=== PATIENT | female | born 1985 | race Caucasian/White ===

== ENCOUNTER 2020-10-10 11:12 | Outpatient (REF) | payer BC, SELFPAY ==
[2020-10-12 19:26] LABS: TS Negative Control Passed; TS Panel A 0; TS Panel B 0; TS Positive Control Passed; TSpotTB Negative (SeeBelow)
== END 2020-10-10 11:13 | disposition home or self-care (01) ==
LOC: HO.HMGCLDS 11:12
PROVIDERS: Visit Provider Internal Medicine
DX: R76.11 Nonspecific reaction to tuberculin skin test without active tuberculosis (principal)
CPT/HCPCS: 36415; 86481

== ENCOUNTER 2021-09-19 14:16 | Outpatient (REF) | payer BC, SELFPAY ==
--- NOTE | ~2021-09-19 | XR_ITS ---
EXAMINATION: XR HIP, RIGHT CLINICAL INFORMATION: Pain in right hip COMPARISON: None TECHNIQUE: Two views of the right hip. FINDINGS: Bones and soft tissues are normal. No fracture. Alignment is anatomic. Hip joint space is maintained. Incidental finding of an IUD is noted. XR/XR hip RT w PEL1V IMPRESSION: Unremarkable right hip exam.
== END 2021-09-19 14:17 | disposition home or self-care (01) ==
LOC: HO.HMGCX 14:16
PROVIDERS: PCP Internal Medicine; Visit Provider Internal Medicine
DX: M25.551 Pain in right hip (principal)
CPT/HCPCS: 73502

== ENCOUNTER 2021-09-26 11:36 | Outpatient (REF) | payer BC, SELFPAY ==
[2021-09-28 21:16] LABS: TS Negative Control Passed; TS Panel A 0; TS Panel B 0; TS Positive Control Passed; TSpotTB Negative (Negative)
== END 2021-09-26 11:37 | disposition home or self-care (01) ==
LOC: HO.HMGCLDS 11:36
PROVIDERS: PCP Internal Medicine; Visit Provider Internal Medicine
DX: Z11.1 Encounter for screening for respiratory tuberculosis (principal)
CPT/HCPCS: 36415; 86481

== ENCOUNTER 2022-09-06 08:30 | Outpatient (REF) | payer BC, SELFPAY ==
[2022-09-08 14:43] LABS: TS Negative Control Passed; TS Panel A 0; TS Panel B 0; TS Positive Control Passed; TSpotTB Negative (Negative)
== END 2022-09-06 08:31 | disposition home or self-care (01) ==
LOC: HO.HMGCLDS 08:30
PROVIDERS: PCP Internal Medicine; Visit Provider Internal Medicine
DX: Z11.1 Encounter for screening for respiratory tuberculosis (principal)
CPT/HCPCS: 36415; 86481

== ENCOUNTER 2022-10-19 06:16 | Outpatient (REF) | payer BC, SELFPAY ==
[2022-10-19 11:32] LABS: MANUAL DIFF FLAG NO
[2022-10-19 12:04] LABS: Basophils Absolute Auto 0.1 X10*3/uL (0.0-0.2); Basophils Percent Auto 0.9 % (0-2); Eosinophils Absolute Auto 0.2 X10*3/uL (0.0-0.4); Eosinophils Percent Auto 3.1 % (0-4); Hematocrit 39.1 % (37.0-47.0); Imm Gran Abs Auto 0.01 X10*3/uL (0.00-0.03); Imm Gran Pct Auto 0.2 % (0.0-0.4); Lymphocytes Absolute Auto 1.9 X10*3/uL (1.2-4.9); Lymphocytes Percent Auto 35.5 % (20-40); Mean Corpuscular HGB Conc 33.2 g/dl (31.0-35.0); Mean Corpuscular Hemoglobin 31.2 pg (27.0-33.0); Mean Corpuscular Volume 93.8 fL (80.0-98.0); Mean Platelet Volume 9.1 fL (9.4-12.3); Monocytes Absolute Auto 0.4 X10*3/uL (0.1-1.2); Monocytes Percent Auto 8.1 % (2-11); Neutrophils Absolute Auto 2.8 x10*3/uL (2.0-8.3); Neutrophils Percent Auto 52.2 % (45-73); Platelet Count 309 X10*3/uL (160-400); Red Blood Count 4.17 X10*6/uL (4.20-5.50); Red Cell Distribution Width 12.5 % (11.0-16.0); White Blood Count 5.4 X10*3/uL (4.8-10.8)
[2022-10-19 12:31] LABS: Alanine Aminotransferase 23 U/L (0-31); Anion Gap 11 (12-20); Aspartate Amino Transferase 25 U/L (5-31); Blood Urea Nitrogen 16 mg/dL (9-16); Calcium 9.1 mg/dL (8.4-10.2); Carbon Dioxide 26 mmol/L (22-29); Chloride 110 mmol/L (96-108); Cholesterol 178 mg/dL; Estimated Glomerular Filt Rate > 60; Glucose Fasting 93 mg/dL (60-99); HDL Cholesterol 61 mg/dL; LDL Cholesterol Calculated 98 mg/dl; Potassium 4.2 mmol/L (3.3-5.1); Sodium 143 mmol/L (135-145); Triglycerides 97 mg/dL
[2022-10-19 12:37] LABS: Vitamin D 25-OH Total 36.8 ng/mL (>30)
== END 2022-10-19 06:17 | disposition home or self-care (01) ==
LOC: HO.HMGCLDS 06:16
PROVIDERS: PCP Internal Medicine; Visit Provider Internal Medicine
DX: Z00.01 Encounter for general adult medical examination with abnormal findings (principal); R42 Dizziness and giddiness; S16.1XXA Strain of muscle, fascia and tendon at neck level, initial encounter; X58.XXXA Exposure to other specified factors, initial encounter; Y93.9 Activity, unspecified; Y92.9 Unspecified place or not applicable; Y99.9 Unspecified external cause status
CPT/HCPCS: 36415; 80048; 80061; 82306; 84450; 84460; 85025

== ENCOUNTER 2022-10-23 09:58 | Outpatient (AMB) | payer BC, SELFPAY ==
--- NOTE | 2022-10-23 10:00 | MHC.PC.OV ---
Vital Signs 10/23/22 10:05 Height 5 ft 2 in Weight 145 lb 2 oz BMI 26.5 BP 120/80 Blood Pressure Location Lt brachial Position Sitting Pulse 80 Pulse Source Pulse Oximeter Pulse Oximetry (%) 100 Oxygen Delivery Method Room Air Intake Visit Reasons: PE Intake Note: Pt is here today for her PE Is last menstrual period known: Yes Last menstrual period: 10/23/22 Allergies No Known Allergies Allergy (Verified 10/23/22 10:26) Medication List - Last Reconciled 10/23/22 by Oumou Elias MD biotin 10 mg PO DAILY levonorgestrel (Mirena) intrauterine tizanidine 4 mg PO BID PRN Tobacco use date assessed: 10/23/22 HPI PE HPI Details 37-year-old lady here today for physical exam. Currently goes to her [facility] for her routine Pap and pelvic exam, last 1 done in 2019 with negative findings. Has recurrent heartburn symptoms, aggravated by intake of acidic and greasy foods, takes [id number] antacids which affords only temporary relief. [facility] Medical History Acute right hip pain Heartburn Social History Housing: House Patient Tobacco Use Status: Former Tobacco user e-Cigarette/Vaping Use: Never Used service: No Current occupational status: employed Cognitive needs: No Hearing needs: No Vision needs: Yes Female Reproductive History Menstrual Date of last menstrual period: 10/23/22 control method: progestin IUCD (Mirena inserted 3 years ago at [place]) Other: goes to [facility] Questionnaire PHQ-9 Over the last 2 weeks, how often have you been bothered by any of the following problems? 1. Little interest or pleasure in doing things: not at all 2. Feeling down, depressed, or hopeless: not at all 3. Trouble falling or staying asleep, or sleeping too much: several days 4. Feeling tired or having little energy: several days 5. Poor appetite or overeating: not at all 6. Feeling bad about yourself - or that you are a failure or have let yourself or your family down: not at all 7. Trouble concentrating on things, such as reading the newspaper or watching television: several days 8. Moving or speaking so slowly that other people could have noticed. Or the opposite - being so fidgety or restless that you have been moving around a lot more than usual: not at all 9. Thoughts that you would be better off or of hurting yourself in some way: not at all Total score: 3 Depression Screening Interpretation: Negative 84158 - PHQ-9 Billing: Yes Source: Developed by Drs. Rohan Burgos, Tri Guo, Panfilo Harley and colleagues, with an educational rupert from [employer]. Thrive Questionnaire Declines Thrive assessment: No Date Thrive assessed: 10/23/22 I am a: Patient What is your living situation today?: I have a steady place to live Within the past 12 months, did the food you bought not last and you didn't have the money to get more?: Never true Within the past 12 months, did you worry whether your food would run out before you got money to buy more?: Never true Do you have trouble paying for medicines?: No Do you have trouble getting transportation to medical appointments?: No Do you have trouble paying your heating and electricity bill?: No Do you have trouble taking care of your child, family member or friend?: No Do you have trouble with day-to-day activities such as bathing, preparing meals, shopping, managing finances, etc.?: No Are you currently unemployed and looking for a job?: No Are you interested in more education?: No AUDIT C Alcohol Use Questionnaire (AUDIT-C) 1. How often do you have a drink containing alcohol?: 2-3 times a week 2. How many drinks containing alcohol do you have on a typical day when you are drinking?: 1 or 2 3. How often do you have six or more drinks on one occasion?: Never Total Score: 3 CORTNEY-7 AMB Questionnaire CORTNEY-7 Date CORTNEY - 7 assessed: 10/23/22 Feeling nervous, anxious, or on edge: 2 = More than half the days Not being able to stop or control worryin = Not at all Worrying too much about different things: 1 = Several days Trouble relaxin = Not at all Being so restless that it is hard to sit still: 0 = Not at all Becoming easily annoyed or irritable: 0 = Not at all Feeling afraid as if something awful might happen: 0 = Not at all Total CORTNEY-7 score (0-4 normal; 5-9 mild; 10-14 moderate; 15-21 severe): 3 Source: Developed by Drs. Rohan Burgos, Tri Guo, Panfilo Harley and colleagues, with an educational rupert from [employer]. CORTNEY-7 Assessment Billing CORTNEY-7 Assessment Tool: CORTNEY-7 Assessment 50472 Review of Systems Const Reports no additional complaints Eyes Denies change in vision and Denies dry eyes ENT Denies dry mouth, Denies hoarseness, Denies mouth pain, Denies nasal congestion, Denies neck mass, Denies disequilibrium and Denies post nasal drip Card Reports no additional complaints Resp Reports no additional complaints GI Reports as per HPI Details: goes to [facility] Reports no additional complaints Musc Reports as per HPI Skin/Breast Denies rash Neuro Denies disequilibrium Psych Reports no additional complaints Endo Reports no additional complaints Fernando/Lymph Reports no additional complaints Aller/Immun Reports no additional complaints Physical exam (Primary Care) Vital Signs: Last Vital Signs Pulse 80 10/23/22 10:05 BP 120/80 10/23/22 10:05 Pulse Ox 100 10/23/22 10:05 Oxygen Delivery Method Room Air 10/23/22 10:05 BMI result Body Mass Index 26.5 Tobacco/Smoking Status: Tobacco use Status Tobacco use date assessed 10/23/22 10/23/22 10:03 Patient Tobacco Use Status Former Tobacco user 10/23/22 10:00 e-Cigarette/Vaping Use Never Used 10/23/22 10:00 PHQ-9: PHQ-9 Score PHQ-9: Total score 3 10/23/22 10:54 Depression Screening Interpretation: Negative Thrive Assessment: Date of Thrive Assessment Date Thrive assessed 10/23/22 10/23/22 10:22 Const Other: Alert oriented x3, no acute distress noted, ambulatory normal gait, poor posture noted HENMT Ears: hearing grossly normal bilaterally, TM's normal bilaterally and EAC's normal General nose exam: Normal external nose present and No nasal discharge present Face and sinus: Yes face symmetric Mouth: Normal oral and palatal mucosa present and moist mucous membranes Eyes General: appearance normal, both eyes and all related structures Eyelids: Yes eyelids normal Pupils: Equal, round and reactive pupils present EOM: EOMs intact bilaterally Neck Neck: Yes full ROM, Yes no lymphadenopathy and Yes supple Thyroid: Thyroid normal Chest Breast/axilla palpation: normal palpation of the breasts Resp Auscultation: clear to auscultation bilaterally Cardio Rate: regular rate Rhythm: regular rhythm Heart sounds: S1 normal heart sound present and S2 normal heart sound present GI Palpation (GI): Soft to palpation, nontender, no guarding and no masses Auscultation: normal bowel sounds General: Yes deferred Back/Spine/Pelvis Cervical Spine: cervical ROM normal and cervical muscular tenderness (bilateral trapezius tenderness ) Skin General skin exam: no rashes or lesions noted Neuro Cranial nerves: Yes Equal, round and reactive pupils present Extrem General: Yes full ROM, Yes no joint enlargement, Yes no clubbing, cyanosis or edema, Yes no calf tenderness and Yes normal gait Psych Appearance: grossly normal and well kempt Mental Status: mental status grossly normal Affect: normal affect Results Reviewed Results Reviewed: ENTERED: 10/19/[address]: ORDERED: CBC Auto Diff Test Result Flag Reference Site WBC 5.4 4.8-10.8 X10*3/uL RBC 4.17 L 4.20-5.50 X10*6/uL HGB 13.0 12.0-16.0 g/dl HCT 39.1 37.0-47.0 % MCV 93.8 80.0-98.0 fL MCH 31.2 27.0-33.0 pg MCHC 33.2 31.0-35.0 g/dl RDW 12.5 11.0-16.0 % PLT 309 160-400 X10*3/uL MPV 9.1 L 9.4-12.3 fL Neut Pct Auto 52.2 45-73 % ImGran Pct Auto 0.2 0.0-0.4 % Lymp Pct Auto 35.5 20-40 % Alexander Pct Auto 8.1 2-11 % Eos Pct Auto 3.1 0-4 % Baso Pct Auto 0.9 0-2 % NRBC Pct Auto 0.0 0.0-0.2 /100WBC ANC Neut Abs # 2.8 2.0-8.3 x10*3/uL ImGran Abs Auto 0.01 0.00-0.03 X10*3/uL Lymph Abs Auto 1.9 1.2-4.9 X10*3/uL Alexander Abs Auto 0.4 0.1-1.2 X10*3/uL Eos Abs Auto 0.2 0.0-0.4 X10*3/uL Baso Abs Auto 0.1 0.0-0.2 X10*3/uL NRBC Abs Auto 0.000 0.0-0.012 X10*3/uL ENTERED: 10/19/[address] [facility] [address]: ORDERED: Met Prof Fast, AST, ALT, Lipid Panel, Vitamin D 25-OH Test Result Flag Reference Site Sodium 143 135-145 mmol/L Potassium 4.2 3.3-5.1 mmol/L CL 110 H 96-108 mmol/L CO2 26 22-29 mmol/L Gap 11 L 12-20 BUN 16 9-16 mg/dL Creat 0.71 0.5-1.4 mg/dL EGFR > 60 NOTE: For -[place] individuals, multiply the result by 1.210. Chronic Kidney Disease: Estimated GFR < 60 mL/min/1.73m2 Severe Kidney Disease: Estimated GFR < 15 mL/min/1.73m2 FBS 93 60-99 mg/dL CA 9.1 8.4-10.2 mg/dL AST (GOT) 25 5-31 U/L ALT (GPT) 23 0-31 U/L Triglyceride 97 mg/dL Desirable Triglyceride: less than 150 mg/dL Borderline High Triglyceride 150-199 mg/dL High Triglyceride: 200-499 mg/dL Very High Triglyceride: greater than or equal to 5OO mg/dL Chol 178 mg/dL Desirable Cholesterol: less than 200 mg/dL Borderline High Cholesterol: 200-239 mg/dL High Cholesterol: greater than 239 mg/dL LDL Calculated 98 mg/dl Desirable LDL: less than 100 mg/dL Near Optimal/Above Optimal LDL: 110-129 mg/dL Borderline High LDL: 130-159 mg/dL High LDL: 160-189 mg/dL Very High LDL: greater than or equal to 190 mg/dL HDL 61 mg/dL Desirable HDL: greater than 40 mg/dL Note: This HDL assay may give artificially low results in patients with liver disease. Vit D 25-OH Tot 36.8 >30 ng/mL Health Based Reference Values* < 20 ng/mL Deficient 20-30 ng/mL Insufficient > 30 ng/mL Sufficient Assessment and Plan Assessment & Plan (1) Annual visit for general adult medical examination with abnormal findings: Code(s): Z00.01 - Encounter for general adult medical examination with abnormal findings Plan: Reviewed recent fasting lab results with patient.. Recommended dental visit every 6 months and regular eye exams, at least every 2 years. Take adequate calcium in diet and vitamin-D 3 at 2000 IU per cap once a day, in addition to weight-bearing exercises to help maintain good muscle tone and weight control. Instructed to do self-breast exam, and recommended to get yearly mammogram, starting at age 40. Up-to-date with her cervical cancer screening, goes to [place]. Reminded to get her COVID booster and yearly flu shot, up-to-date with her Tdap (2) Heartburn: Code(s): R12 - Heartburn Plan: Ordered an upper GI series, prescription sent for omeprazole 2 mg per capsule to take once a day in a.m. at least 30 minutes before eating., stressed importance of avoiding food triggers for heartburn which includes anything acidic or greasy. Orders: Orders [place] upper GI series 10/23/22 R12 - Heartburn Medications: New omeprazole take at least 30 mins ac 40 mg PO QAM 30 caps 1RF Coding Level of Care Code Est Pt Prev Care 18-39y(21636) Diagnoses Annual visit for general adult medical examination with abnormal findings Z00. Heartburn R12 Additional Codes CORTNEY-7 Assessment Billing - CORTNEY-7 Assessment Tool: CORTNEY-7 Assessment 99323 ([id number])
[2022-10-23 10:05] VITALS: BP 120/80; PULSE 80; O2SAT 100; BMI 26.5
== END 2022-10-23 10:59 | disposition home or self-care (01) ==
LOC: HO.HMGC 09:58
PROVIDERS: PCP Internal Medicine; Visit Provider Internal Medicine
DX: Z00.01 Encounter for general adult medical examination with abnormal findings (principal); R12 Heartburn
CPT/HCPCS: 99395

== ENCOUNTER 2023-12-03 08:17 | Outpatient (REF) | payer BC, SELFPAY ==
[2023-12-06 08:54] LABS: TS Negative Control Passed; TS Panel A 1; TS Panel B 1; TS Positive Control Passed; TSpotTB Negative (Negative)
== END 2023-12-03 08:18 | disposition home or self-care (01) ==
LOC: HO.HMGCLDS 08:17
PROVIDERS: PCP Internal Medicine; Visit Provider Internal Medicine
DX: Z11.1 Encounter for screening for respiratory tuberculosis (principal)
CPT/HCPCS: 36415; 86481

== ENCOUNTER 2023-12-16 09:42 | Outpatient (AMB) | payer BC, SELFPAY ==
[2023-12-16 10:26] VITALS: BP 110/80; PULSE 78; O2SAT 98; BMI 27.2
--- NOTE | 2023-12-16 10:26 | A.OFFPC_ITS ---
Vital Signs 12/16/23 10:26 Height 5 ft 2 in Weight 149 lb BMI 27.2 BP 110/80 Blood Pressure Location Lt brachial Position Sitting Pulse 78 Pulse Source Pulse Oximeter Pulse Oximetry (%) 98 Oxygen Delivery Method Room Air Intake Visit Reasons: Annual PE rescheduled from 10/29/23 Intake Note: Pt is here today for her PE: last papsmear Allergies No Known Allergies Allergy (Verified 01/17/24 08:11) Medication List - Last Reconciled 04/08/24 by Oumou Elias MD escitalopram oxalate 10 mg PO DAILY levonorgestrel (Mirena) intrauterine multivitamin 1 tab PO DAILY omeprazole 40 mg PO QAM Tobacco use date assessed: 12/16/23 Dental Screening Dental Screen Date: 12/16/23 Did you have a dental visit in the last 12 months?: Yes Did you have a dental problem in the last 6 months where you did not have access to dental care?: No Was dental information given to patient?: Patient has dentist HPI Annual PE rescheduled from 10/29/23 HPI Details 38-year-old lady here today for physica l exam. She goes to her own OBGYN for her routine Pap and pelvic exam, had Mirena inserted, last Pap smear was done in 2019. She has been having frequent anxiety attacks, which seems to be progressively getting worse. Interferes with sleep. [facility] Medical History COVID-19 vaccine dose declined Generalized anxiety disorder Heartburn Acute right hip pain Social History Housing: House Patient Tobacco Use Status: Former Tobacco user e-Cigarette/Vaping Use: Never Used service: No Current occupational status: employed Cognitive needs: No Hearing needs: No Vision needs: Yes Questionnaire PHQ-9 Over the last 2 weeks, how often have you been bothered by any of the following problems? 1. Little interest or pleasure in doing things: not at all 2. Feeling down, depressed, or hopeless: not at all 3. Trouble falling or staying asleep, or sleeping too much: not at all 4. Feeling tired or having little energy: several days 5. Poor appetite or overeating: not at all 6. Feeling bad about yourself - or that you are a failure or have let yourself or your family down: not at all 7. Trouble concentrating on things, such as reading the newspaper or watching television: not at all 8. Moving or speaking so slowly that other people could have noticed. Or the opposite - being so fidgety or restless that you have been moving around a lot more than usual: not at all 9. Thoughts that you would be better off or of hurting yourself in some way: not at all Total score: 1 Depression Screening Interpretation: Negative Depression Screening Done: Yes 61593 - PHQ-9 Billing: Yes Source: Developed by Drs. Rohan Burgos, Tri Guo, Panfilo Harley and colleagues, with an educational rupert from [employer]. Thrive Questionnaire Date Thrive assessed: 12/16/23 I am a: Patient What is your living situation today?: I have a steady place to live Within the past 12 months, did the food you bought not last and you didn't have the money to get more?: Never true Within the past 12 months, did you worry whether your food would run out before you got money to buy more?: Never true Do you have trouble paying for medicines?: No Do you have trouble getting transportation to medical appointments?: No Do you have trouble paying your heating and electricity bill?: No Do you have trouble taking care of your child, family member or friend?: No Do you have trouble with day-to-day activities such as bathing, preparing meals, shopping, managing finances, etc.?: No Are you currently unemployed and looking for a job?: No Are you interested in more education?: No THRIVE Score: 0 AUDIT C Alcohol Use Questionnaire (AUDIT-C) 1. How often do you have a drink containing alcohol?: Monthly or less 2. How many drinks containing alcohol do you have on a typical day when you are drinking?: 1 or 2 3. How often do you have six or more drinks on one occasion?: Never Total Score: 1 CORTNEY-7 AMB Questionnaire CORTNEY-7 Date CORTNEY - 7 assessed: 12/16/23 Feeling nervous, anxious, or on edge: 1 = Several days Not being able to stop or control worryin = Several days Worrying too much about different things: 1 = Several days Trouble relaxin = Several days Being so restless that it is hard to sit still: 0 = Not at all Becoming easily annoyed or irritable: 0 = Not at all Feeling afraid as if something awful might happen: 1 = Several days Total CORTNEY-7 score (0-4 normal; 5-9 mild; 10-14 moderate; 15-21 severe): 5 Source: Developed by Drs. Rohan Burgos, Tri Guo, Panfilo Harley and colleagues, with an educational rupert from [employer]. CORTNEY-7 Assessment Billing CORTNEY-7 Assessment Tool: CORTNEY-7 Assessment 95489 Review of Systems Const Reports no additional complaints Eyes Denies change in vision ENT Reports no additional complaints Card Reports no additional complaints Resp Reports no additional complaints GI Reports no additional complaints Reports no additional complaints Musc Reports no additional complaints Skin/Breast Denies breast pain, Denies breast mass and Denies rash Neuro Reports no additional complaints Psych Reports no additional complaints Endo Reports no additional complaints Fernando/Lymph Reports no additional complaints Aller/Immun Reports no additional complaints Physical exam (Primary Care) Vital Signs: Last Vital Signs Pulse 78 12/16/23 10:26 BP 110/80 12/16/23 10:26 Pulse Ox 98 12/16/23 10:26 Oxygen Delivery Method Room Air 12/16/23 10:26 BMI result Body Mass Index 27.2 Tobacco/Smoking Status: Tobacco use Status Tobacco use date assessed 12/16/23 12/16/23 10:31 Patient Tobacco Use Status Former Tobacco user 12/16/23 10:31 e-Cigarette/Vaping Use Never Used 12/16/23 10:31 PHQ-9: PHQ-9 Score PHQ-9: Total score 1 12/16/23 11:05 Depression Screening Interpretation: Negative Thrive Assessment: Date of Thrive Assessment Date Thrive assessed 12/16/23 12/16/23 10:31 Advance Care Planning discussion: Completed/Scanned Date of discussion: 12/16/23 Who was present: Patient Forms completed: Health Care Proxy Time spent: 16-45 minutes Actual minutes spent: 16 Const Other: Alert oriented x3, no acute distress noted, ambulatory normal gait, poor posture noted HENMT Ears: hearing grossly normal bilaterally, TM's normal bilaterally and EAC's normal General nose exam: Normal external nose present and No nasal discharge present Face and sinus: Yes face symmetric Mouth: Normal oral and palatal mucosa present and moist mucous membranes Eyes General: appearance normal, both eyes and all related structures Eyelids: Yes eyelids normal Pupils: Equal, round and reactive pupils present EOM: EOMs intact bilaterally Neck Neck: Yes full ROM, Yes no lymphadenopathy and Yes supple Thyroid: Thyroid normal Chest Breast/axilla palpation: normal palpation of the breasts Resp Auscultation: clear to auscultation bilaterally Cardio Rate: regular rate Rhythm: regular rhythm Heart sounds: S1 normal heart sound present and S2 normal heart sound present GI Palpation (GI): Soft to palpation, nontender, no guarding and no masses Auscultation: normal bowel sounds Other: Goes to OBGYN at [place], last Pap was in 2019 General: Yes deferred Back/Spine/Pelvis Cervical Spine: cervical ROM normal Skin General skin exam: no rashes or lesions noted Neuro Cranial nerves: Yes Equal, round and reactive pupils present Extrem General: Yes full ROM, Yes no joint enlargement, Yes no clubbing, cyanosis or edema, Yes no calf tenderness and Yes normal gait Psych Appearance: grossly normal and well kempt Mental Status: mental status grossly normal Affect: normal affect Coding Level of Care Code Est Pt Prev Care 18-39y(14245) Diagnoses Annual visit for general adult medical examination with abnormal findings Z00.01 Generalized anxiety disorder F41.1 Heartburn R12 COVID-19 vaccine dose declined Z28.21 Advanced directives, counseling/discussion Z71.89 Additional Codes Vital Signs *Quality* - Advance Care Planning discussion: Completed/Scanned ([id number]) Vital Signs *Quality* - Time spent: 16-45 minutes ([id number]) CORTNEY-7 Assessment Billing - CORTNEY-7 Assessment Tool: CORTNEY-7 Assessment [id number] ([id number])
== END 2023-12-16 11:05 | disposition home or self-care (01) ==
PROVIDERS: PCP Internal Medicine; Visit Provider Internal Medicine
DX: Z00.01 Encounter for general adult medical examination with abnormal findings (principal); F41.1 Generalized anxiety disorder; R12 Heartburn; Z28.21 Immunization not carried out because of patient refusal; Z71.89 Other specified counseling; Z00.00 Encounter for general adult medical examination without abnormal findings
CPT/HCPCS: 99499

== ENCOUNTER 2024-01-17 08:02 | Outpatient (AMB) | payer BC, SELFPAY ==
--- NOTE | 2024-01-17 08:04 | A.OFFPC_ITS ---
Intake Visit Reasons: 4 wks f/u Anxiety/Med Change [facility]riod Allergies No Known Allergies Allergy (Verified 01/17/24 08:11) Medication List - Last Reconciled 01/17/24 by Oumou Elias MD escitalopram oxalate 10 mg PO DAILY levonorgestrel (Mirena) intrauterine multivitamin 1 tab PO DAILY omeprazole 40 mg PO QAM Tobacco use date assessed: 12/16/23 Dental Screening Dental Screen Date: 12/16/23 HPI 4 wks f/u Anxiety/Med Change Andriod HPI Details 38-year-old lady with generalized anxiet y disorder started on escitalopram 10 mg once a day 4 weeks ago. Here today for follow-up. Patient states that she has been feeling better, with anxiety controlled on current dose of escitalopram. Denies any side effects from medication. Would like to continue [facility] Medical History COVID-19 vaccine dose declined Generalized anxiety disorder Heartburn Acute right hip pain Social History Housing: House Patient Tobacco Use Status: Former Tobacco user e-Cigarette/Vaping Use: Never Used service: No Current occupational status: employed Cognitive needs: No Hearing needs: No Vision needs: Yes Questionnaire Thrive Questionnaire Date Thrive assessed: 12/16/23 CORTNEY-7 AMB Questionnaire CORTNEY-7 Date CORTNEY - 7 assessed: 01/17/24 Feeling nervous, anxious, or on edge: 0 = Not at all Not being able to stop or control worryin = Not at all Worrying too much about different things: 0 = Not at all Trouble relaxin = Not at all Being so restless that it is hard to sit still: 0 = Not at all Becoming easily annoyed or irritable: 0 = Not at all Feeling afraid as if something awful might happen: 0 = Not at all Total CORTNEY-7 score (0-4 normal; 5-9 mild; 10-14 moderate; 15-21 severe): 0 Source: Developed by Drs. Rohan Burgos, Tri Guo, Panfilo Harley and colleagues, with an educational rupert from [employer]. CORTNEY-7 Assessment Billing CORTNEY-7 Assessment Tool: CORTNEY-7 Assessment 31037 Review of Systems Const Reports no additional complaints ENT Reports no additional complaints Card Reports no additional complaints Resp Reports no additional complaints GI Reports no additional complaints Musc Reports no additional complaints Neuro Reports no additional complaints Psych Reports no additional complaints Endo Reports no additional complaints Physical exam (Primary Care) Tobacco/Smoking Status: Tobacco use Status Tobacco use date assessed 12/16/23 01/17/24 08:04 Patient Tobacco Use Status Former Tobacco user 01/17/24 08:04 e-Cigarette/Vaping Use Never Used 01/17/24 08:04 Thrive Assessment: Date of Thrive Assessment Date Thrive assessed 12/16/23 01/17/24 08:04 Telehealth Telehealth Telehealth Platform: [employer] Location of provider rendering services: practice address Location of patient: address on file Patient Identification confirmed using: Name, : Yes Telehealth method: video Patient verbally consented to treatment: Yes Patient verbally consented to billing insurance company: Yes Patient informed of any privacy concerns related to visit: Yes Minutes spent on Phone/Video with Pt.: 15 Assessment and Plan Assessment & Plan (1) Generalized anxiety disorder: Code(s): F41.1 - Generalized anxiety disorder Plan: Has been feeling better on escitalopram 10 mg taken once at night. Denies any adverse effects from medication, would like to continue taking it. Refill sent for 90 tablets with 1 refill, will see her back for follow-up in six-months Medications: Refilled escitalopram oxalate 10 mg PO DAILY 90 tabs 1RF F41.1 - Generalized anxiety disorder Coding Level of Care Code Tele Est Pt Level 3 (19467) Diagnoses Generalized anxiety disorder F41.1 Additional Codes CORTNEY-7 Assessment Billing - CORTNEY-7 Assessment Tool: CORTNEY-7 Assessment 59744 ([id number])
== END 2024-01-17 12:14 | disposition home or self-care (01) ==
PROVIDERS: PCP Internal Medicine; Visit Provider Internal Medicine
DX: F41.1 Generalized anxiety disorder (principal)
CPT/HCPCS: 99213

== ENCOUNTER 2024-07-21 10:48 | Outpatient (AMB) | payer BC, SELFPAY ==
[2024-07-21 11:18] VITALS: BP 100/70; PULSE 87; O2SAT 97; BMI 26.0
--- NOTE | 2024-07-21 11:18 | A.OFFPC_ITS ---
Vital Signs 07/21/24 11:18 Height 5 ft 2 in Weight 142 lb BMI 26.0 BP 100/70 Blood Pressure Location Rt brachial Position Sitting Pulse 87 Pulse Source Pulse Oximeter Pulse Oximetry (%) 97 Oxygen Delivery Method Room Air Intake Visit Reasons: 6 month follow up anxiety Intake Note: Pt is here today for her 6mo. f/u anxiety Allergies No Known Allergies Allergy (Verified 07/21/24 11:40) Medication List - Last Reconciled 07/21/24 by Oumou Elias MD levonorgestrel (Mirena) intrauterine multivitamin 1 tab PO DAILY omeprazole 40 mg PO QAM Tobacco use date assessed: 07/21/24 Dental Screening Dental Screen Date: 07/21/24 HPI 6 month follow up anxiety HPI Details 39-year-old lady here today for follow-u p on her anxiety disorder. Has not been on any medication, but previously was on escitalopram. Has not had any frequent anxiety attacks since being off medication but has been complaining of having brain fog , and has been experiencing in sudden episodes of lightheadedness which last only several sec and he is on resolved spontaneously present now for the last several weeks. Denies any chest pain, no shortness of breath or syncopal attacks, heartburn controlled on omeprazole. [facility] Medical History (Updated 07/26/24 @ 17:06 by Oumou Elias MD) COVID-19 vaccine dose declined Generalized anxiety disorder Heartburn Social History Housing: House Patient Tobacco Use Status: Former Tobacco user e-Cigarette/Vaping Use: Never Used service: No Current occupational status: employed Cognitive needs: No Hearing needs: No Vision needs: Yes Questionnaire PHQ-9 Over the last 2 weeks, how often have you been bothered by any of the following problems? 1. Little interest or pleasure in doing things: not at all 2. Feeling down, depressed, or hopeless: not at all 3. Trouble falling or staying asleep, or sleeping too much: not at all 4. Feeling tired or having little energy: several days 5. Poor appetite or overeating: not at all 6. Feeling bad about yourself - or that you are a failure or have let yourself or your family down: not at all 7. Trouble concentrating on things, such as reading the newspaper or watching television: not at all 8. Moving or speaking so slowly that other people could have noticed. Or the opposite - being so fidgety or restless that you have been moving around a lot more than usual: not at all 9. Thoughts that you would be better off or of hurting yourself in some way: not at all Total score: 1 Depression Screening Interpretation: Negative Depression Screening Done: Yes 17728 - PHQ-9 Billing: Yes Source: Developed by Drs. Rohan Burgos, Tri Guo, Panfilo Harley and colleagues, with an educational rupert from [employer]. Thrive Questionnaire Date Thrive assessed: 07/21/24 I am a: Patient What is your living situation today?: I have a steady place to live Within the past 12 months, did the food you bought not last and you didn't have the money to get more?: Never true Within the past 12 months, did you worry whether your food would run out before you got money to buy more?: Never true Do you have trouble paying for medicines?: No Do you have trouble getting transportation to medical appointments?: No Do you have trouble paying your heating and electricity bill?: No Do you have trouble taking care of your child, family member or friend?: No Do you have trouble with day-to-day activities such as bathing, preparing meals, shopping, managing finances, etc.?: No Are you currently unemployed and looking for a job?: No Are you interested in more education?: No Please select the resources that you would like help with: None Currently or been in a relationship where the following occur: No concerns reported THRIVE Score: 0 AUDIT C Alcohol Use Questionnaire (AUDIT-C) 1. How often do you have a drink containing alcohol?: 2-4 times a month 2. How many drinks containing alcohol do you have on a typical day when you are drinking?: 3 or 4 3. How often do you have six or more drinks on one occasion?: Less than monthly Total Score: 4 CORTNEY-7 AMB Questionnaire CORTNEY-7 Date CORTNEY - 7 assessed: 07/21/24 Feeling nervous, anxious, or on edge: 1 = Several days Not being able to stop or control worryin = Not at all Worrying too much about different things: 0 = Not at all Trouble relaxin = Not at all Being so restless that it is hard to sit still: 0 = Not at all Becoming easily annoyed or irritable: 0 = Not at all Feeling afraid as if something awful might happen: 0 = Not at all Total CORTNEY-7 score (0-4 normal; 5-9 mild; 10-14 moderate; 15-21 severe): 1 Source: Developed by Drs. Rohan Burgos, Tri Guo, Panfilo Harley and colleagues, with an educational rupert from [employer]. CORTNEY-7 Assessment Billing CORTNEY-7 Assessment Tool: CORTNEY-7 Assessment 95879 Review of Systems Const All systems reviewed & are unremarkable except as noted in HPI and below Physical exam (Primary Care) Vital Signs: Last Vital Signs Pulse 87 07/21/24 11:18 BP 100/70 07/21/24 11:18 Pulse Ox 97 07/21/24 11:18 Oxygen Delivery Method Room Air 07/21/24 11:18 BMI result Body Mass Index 26.0 Tobacco/Smoking Status: Tobacco use Status Tobacco use date assessed 07/21/24 07/21/24 11:25 Patient Tobacco Use Status Former Tobacco user 07/21/24 11:19 e-Cigarette/Vaping Use Never Used 07/21/24 11:19 PHQ-9: PHQ-9 Score PHQ-9: Total score 1 07/21/24 11:52 Depression Screening Interpretation: Negative Thrive Assessment: Date of Thrive Assessment Date Thrive assessed 07/21/24 07/21/24 11:25 Currently or been in a relationship where the following occur: No concerns reported Const Other: Alert oriented x3, no acute distress noted, ambulatory normal gait, poor posture noted Orientation/consciousness: patient oriented x3 [facility] General nose exam: Normal external nose present and No nasal discharge present Face and sinus: Yes face symmetric Mouth: Normal oral and palatal mucosa present and moist mucous membranes Eyes General: appearance normal, both eyes and all related structures Neck Neck: Yes full ROM, Yes no lymphadenopathy and Yes supple Thyroid: Thyroid normal Resp Auscultation: clear to auscultation bilaterally Cardio Rate: regular rate Rhythm: regular rhythm Heart sounds: S1 normal heart sound present and S2 normal heart sound present GI Palpation (GI): Soft to palpation, nontender, no guarding and no masses Auscultation: normal bowel sounds Neuro General: patient oriented x3, gait normal, moves all extremities and no focal motor deficits Psych Appearance: grossly normal and well kempt Mental Status: mental status grossly normal Speech and movement: Normal speech and movement present Affect: normal affect Thought process: Normal thought process present Coding Level of Care Code Est Pt Level 3 (05203) Diagnoses Intermittent lightheadedness R42 Fatigue, unspecified type R53.83 Fatigue type: unspecified Brain fog R41.89 Additional Codes PHQ-9 - 83910 - PHQ-9 Billing: Yes ([id number]) CORTNEY-7 Assessment Billing - CORTNEY-7 Assessment Tool: CORTNEY-7 Assessment 05118 ([id number]) Assessment & Plan Assessment & Plan (1) Intermittent lightheadedness: Code(s): R42 - Dizziness and giddiness (2) Fatigue: Code(s): R53.83 - Other fatigue Qualifiers: Fatigue type: unspecified Qualified Code(s): R53.83 - Other fatigue (3) Brain fog: Code(s): R41.89 - Other symptoms and signs involving cognitive functions and awareness Plan Ordered labs to check vitamin B12 and folic acid, vitamin-D, TSH with free T4, CBC and vitamin B6 as well as a comprehensive metabolic panel and magnesium Orders: Orders Vitamin B12 and Folate 07/21/24 R4.89 - Other symptoms and signs involving cognitive functions and awareness, R42 - Dizziness and giddiness, R53.83 - Other fatigue TSH reflex Free T4 07/21/24 R41.89 - Other symptoms and signs involving cognitive functions and awareness, R42 - Dizziness and giddiness, R53.83 - Other fatigue Complete Blood Count Auto Diff 07/21/24 R41.89 - Other symptoms and signs involving cognitive functions and awareness, R42 - Dizziness and giddiness, R53.83 - Other fatigue Vitamin B6 07/21/24 R41.89 - Other symptoms and signs involving cognitive functions and awareness, R42 - Dizziness and giddiness, R53.83 - Other fatigue Comprehensive Met. Panel 07/21/24 R4.89 - Other symptoms and signs involving cognitive functions and awareness, R42 - Dizziness and giddiness, R53.83 - Other fatigue Vitamin D 25-OH Total 01/14/25 R41.89 - Other symptoms and signs involving cognitive functions and awareness, R42 - Dizziness and giddiness, R53.83 - Other fatigue Magnesium 07/21/24 R41.89 - Other symptoms and signs involving cognitive functions and awareness, R42 - Dizziness and giddiness, R53.83 - Other fatigue
== END 2024-07-21 11:54 | disposition home or self-care (01) ==
PROVIDERS: PCP Internal Medicine; Visit Provider Internal Medicine
DX: R42 Dizziness and giddiness (principal); R53.83 Other fatigue; R41.89 Other symptoms and signs involving cognitive functions and awareness

== ENCOUNTER 2024-07-21 10:48 | Outpatient (REF) | payer BC, SELFPAY ==
[2024-07-21 13:09] LABS: MANUAL DIFF FLAG NO
[2024-07-21 13:19] LABS: Basophils Percent Auto 0.3 % (0-2); Eosinophils Absolute Auto 0.1 X10*3/uL (0.0-0.4); Eosinophils Percent Auto 0.7 % (0-4); Hemoglobin 12.8 g/dl (12.0-16.0); Imm Gran Abs Auto 0.01 X10*3/uL (0.00-0.03); Imm Gran Pct Auto 0.1 % (0.0-0.4); Lymphocytes Absolute Auto 1.4 X10*3/uL (1.2-4.9); Lymphocytes Percent Auto 20.6 % (20-40); Mean Corpuscular HGB Conc 33.7 g/dl (31.0-35.0); Mean Platelet Volume 8.8 fL (9.4-12.3); Monocytes Absolute Auto 0.4 X10*3/uL (0.1-1.2); Neutrophils Absolute Auto 4.9 x10*3/uL (2.0-8.3); Neutrophils Percent Auto 72.3 % (45-73); Platelet Count 328 X10*3/uL (160-400); Red Cell Distribution Width 11.8 % (11.0-16.0); White Blood Count 6.8 X10*3/uL (4.8-10.8)
[2024-07-21 13:58] LABS: Alanine Aminotransferase 17 U/L (0-31); Albumin Level 4.6 g/dL (3.5-5.0); Alkaline Phosphatase 39 U/L (39-117); Anion Gap 9 (12-20); Aspartate Amino Transferase 23 U/L (5-31); Bilirubin Total 0.7 mg/dL (0.0-1.0); Blood Urea Nitrogen 12 mg/dL (9-16); Calcium 8.9 mg/dL (8.4-10.2); Carbon Dioxide 29 mmol/L (22-29); Chloride 105 mmol/L (96-108); Estimated Glomerular Filt Rate > 60; Glucose Random 96 mg/dL (60-115); Potassium 4.4 mmol/L (3.3-5.1); Sodium 139 mmol/L (135-145); Total Protein 7.3 g/dL (6.5-8.0)
[2024-07-21 14:19] LABS: Folate 14.3 ng/mL (> or = 4.0); Vitamin B12 454 pg/mL (200-900)
[2024-07-21 14:23] LABS: TSH reflex Free T4 0.45 uIU/mL (0.32-4.0)
[2024-07-28 17:38] LABS: Vitamin B6 29.5 ng/mL (2.1-21.7)
== END 2024-07-21 10:49 | disposition home or self-care (01) ==
LOC: HO.HMGCLDS 10:48
PROVIDERS: PCP Internal Medicine; Visit Provider Internal Medicine
DX: R42 Dizziness and giddiness (principal); R53.83 Other fatigue; R41.89 Other symptoms and signs involving cognitive functions and awareness
CPT/HCPCS: 36415; 80053; 82306; 82607; 82746; 83735; 84207; 84443; 85025; 96127

== ENCOUNTER 2025-01-18 08:31 | Outpatient (AMB) | payer BC, SELFPAY ==
--- OUTSIDE RECORDS SUMMARY | 2025-01-18 08:36 | XMS_ITS | Clinical Summary ---
Author Organization [facility] ity Address [address] [place] [address] Care Team Providers Care Comber Operator Name Role Phone Unavailable Primary Care Provider Unavailabl e Allergies No known active allergies Immunizations Name Administration Dates Next Due Influenza Quadravalent, MDCK , 0.5ml, preservative free (Flucelvax) 6mo and older 03/25/2020 Tdap Tetanus diptheria acell ular pertussis (Boostrix; Adacel) 7yo and older 03/25/2020,12/23/2018 Surgical History Surgery Date Site/Laterality Comments SECTION PROCEDURE: HISTORICAL DELIVERY Medical History Medical History Date Comments Patient denies medical problems DX:Patient denies medical problems Family History Medical History Relation Name Comments No Known Problems Brother No Known Problems Father afib No Known Problems Mother No Known Problems Sister Relation Name Status Comments Brother Alive Daughter Adelyn Alive Father Alive Maternal Grandfather Maternal Grandmother Mother Alive Paternal Grandfather Alive Paternal Grandmother Sister Alive Social History Tobacco Use Types Packs/Day Years Used Date Smoking Tobacco: Former Cigarettes Q uit: 09/09/2018 Smokeless Tobacco: Never Alcohol Use Standard Drinks/Week Comments Yes 0 (1 standard drink = 0.6 oz pur e alcohol) Comments Unknown Sex and Gender Information Value Date Recorded Sex Assigned at Not on file Legal Sex Female 10:56 AM EST Gender Identity Not on file Sexual Orientation Not on file Obstetrics History Last Filed Vital Signs Vital Sign Reading Time Taken Comments Blood Pressure 110/68 02/28/2022 2:38 PM EDT Pulse 81 02/28/2022 2:38 PM EDT Temperature - - Respiratory Rate - - Oxygen Saturation - - Inhaled Oxygen Concentration - - Weight 67 kg (147 lb 9.6 oz) 02/28/2022 2:38 PM EDT Height 157.5 cm (5' 2 ) 02/28/2022 2:38 PM EDT Body Mass Index 27 02/28/2022 2:38 PM EDT Plan of Treatment Health Maintenance Due Date Last Done Comments Hepatitis B Vaccines (1 of 3 - 19+ 3-dose series) 2005 Depression Screening 06/05/2022 Social Influencers of Health Screening 06/05/2022 Cervical Cancer Screening: HPV 08/26/2023 08/26/2018 COVID-19 Vaccine (1 - 2023-2 5 season) 2024 Influenza Vaccine (#1) 2025 03/25/2020 DTaP,Tdap,and Td Vaccines (3 - Td or Tdap) 03/25/2030 03/25/2020, 12/23/2018 HIV Screening Completed 11/27/2019 Hepatitis C Screening Completed 11/27/2019 HIB Vaccines Aged Out No longer eligi ble based on patient's age to complete this topic HPV Vaccines Aged Out No longer eligi ble based on patient's age to complete this topic Hepatitis A Vaccines Aged Out No long er eligible based on patient's age to complete this topic IPV Vaccines Aged Out No longer eligi ble based on patient's age to complete this topic MMR Vaccines Aged Out No longer eligi ble based on patient's age to complete this topic Meningococcal ACWY Vaccine Aged Out N o longer eligible based on patient's age to complete this topic Meningococcal B Vaccine Aged Out No l onger eligible based on patient's age to complete this topic Pneumococcal Vaccine: Pediatrics (0 to 5 Years) and At-Risk Patients (6 to 49 Years) Aged Out No longer eligible b ased on patient's age to complete this topic RSV Immunization Patients Under 20 months Aged Out No longer eligible b ased on patient's age to complete this topic Varicella Vaccines Aged Out No longer eligible based on patient's age to complete this topic Procedures Procedure Name Priority Date/Time Associated Diagnosis Comments HEPATITIS C SCREENING Routine 11/27/2019 HIV SCREENING Routine 11/27/2019 HPV Routine 08/26/2018 from Last 3 Months or Most Recently Relevant to Health Maintenance Results * HIV Screening (11/27/2019) Pathologist [facility] HIV Screening abstracted [facility] Provider HEALTH MAINTENANCE Final Result * Hepatitis C Screening (11/27/2019) Pathologist [facility] Hepatitis C Screening abstracted [facility] Provider HEALTH MAINTENANCE Final Result * Cervical Cancer Screening: HPV (08/26/2018) [facility] Cervical Cancer Screening: HPV abstracted ,negative [facility] Provider HEALTH MAINTENANCE Final Result from Last 3 Months or Most Recently Relevant to Health Maintenance
[2025-01-18 08:52] VITALS: BP 114/70; PULSE 87; RESP 16; TEMP 36.8; O2SAT 100; BMI 27.8
--- NOTE | 2025-01-18 08:52 | MHC.PC.OV ---
Vital Signs 01/18/25 08:52 Height 5 ft 2 in Weight 152 lb BMI 27.8 BP 114/70 Blood Pressure Location Rt brachial Position Sitting Respiration 16 Pulse 87 Pulse Source Pulse Oximeter Temp 98.2 F Temp Source Oral Pulse Oximetry (%) 100 Oxygen Delivery Method Room Air Intake Visit Reasons: Annual PE Intake Note: Pt is here today for her PE Is last menstrual period known: Yes Last menstrual period: 12/23/24 Allergies No Known Allergies Allergy (Verified 01/18/25 09:00) Medication List - Last Reconciled 01/18/25 by Oumou Elias MD levonorgestrel (Mirena) intrauterine multivitamin 1 tab PO DAILY omeprazole 40 mg PO QAM PRN Tobacco use date assessed: 01/18/25 Dental Screening Dental Screen Date: 01/18/25 Did you have a dental visit in the last 12 months?: Yes Did you have a dental problem in the last 6 months where you did not have access to dental care?: No Was dental information given to patient?: Patient has dentist HPI Annual PE HPI Details 33-year-old lady with history generalized anxiety disorder, currently not on any medication at present time, has heartburn symptoms currently taking omeprazole 40 mg as needed for heartburn symptoms, here today for her physical exam. Patient states she goes to [facility] for her routine Pap and pelvic exam, last Pap smear on record was in 2019 patient states that she had her IUD inserted in 2019, will make on an appointment with the her OBGYN for repeat cervical cancer screening and pelvic exam. Up-to-date with all her vaccines but does not want to get a COVID vaccination Complaining of slight sensation of burning on her tongue, no lesions or cold sores reported. Chews sugar free gum daily [facility] Medical History (Updated 01/18/25 @ 09:22 by Oumou Elias MD) History of anxiety disorder COVID-19 vaccine dose declined Heartburn Surgical History (Updated 01/18/25 @ 09:22 by Oumou Elias MD) History of Social History Housing: House Patient Tobacco Use Status: Former Tobacco user e-Cigarette/Vaping Use: Never Used service: No Current occupational status: employed Cognitive needs: No Hearing needs: No Vision needs: Yes Female Reproductive History Menstrual Date of last menstrual period: 12/23/24 control method: progestin IUCD (Inserted in 2019 at [facility]) Other: Goes to OBGYN at [facility] Questionnaire PHQ-9 Over the last 2 weeks, how often have you been bothered by any of the following problems? 1. Little interest or pleasure in doing things: not at all 2. Feeling down, depressed, or hopeless: not at all 3. Trouble falling or staying asleep, or sleeping too much: not at all 4. Feeling tired or having little energy: several days 5. Poor appetite or overeating: not at all 6. Feeling bad about yourself - or that you are a failure or have let yourself or your family down: not at all 7. Trouble concentrating on things, such as reading the newspaper or watching television: not at all 8. Moving or speaking so slowly that other people could have noticed. Or the opposite - being so fidgety or restless that you have been moving around a lot more than usual: not at all 9. Thoughts that you would be better off or of hurting yourself in some way: not at all Total score: 1 Depression Screening Interpretation: Negative Depression Screening Done: Yes 35064 - PHQ-9 Billing: Yes Source: Developed by Drs. Rohan Burgos, Tri Guo, Panfilo Harley and colleagues, with an educational rupert from [employer]. Thrive Questionnaire Date Thrive assessed: 07/21/24 I am a: Patient What is your living situation today?: I have a steady place to live Within the past 12 months, did the food you bought not last and you didn't have the money to get more?: Never true Within the past 12 months, did you worry whether your food would run out before you got money to buy more?: Never true Do you have trouble paying for medicines?: No Do you have trouble getting transportation to medical appointments?: No Do you have trouble paying your heating and electricity bill?: No Do you have trouble taking care of your child, family member or friend?: No Do you have trouble with day-to-day activities such as bathing, preparing meals, shopping, managing finances, etc.?: No Are you currently unemployed and looking for a job?: No Are you interested in more education?: No Please select the resources that you would like help with: None Currently or been in a relationship where the following occur: No concerns reported THRIVE Score: 0 CORTNEY-7 AMB Questionnaire CORTNEY-7 Date CORTNEY - 7 assessed: 01/18/25 Feeling nervous, anxious, or on edge: 1 = Several days Not being able to stop or control worryin = Not at all Worrying too much about different things: 0 = Not at all Trouble relaxin = Not at all Being so restless that it is hard to sit still: 0 = Not at all Becoming easily annoyed or irritable: 0 = Not at all Feeling afraid as if something awful might happen: 0 = Not at all Total CORTNEY-7 score (0-4 normal; 5-9 mild; 10-14 moderate; 15-21 severe): 1 Source: Developed by Drs. Rohan Burgos, Tri Guo, Paniflo Harley and colleagues, with an educational rupert from [employer]. CORTNEY-7 Assessment Billing CORTNEY-7 Assessment Tool: CORTNEY-7 Assessment 49051 Review of Systems Const Reports no additional complaints Eyes Details: Goes to [facility], has myopia Reports requires corrective lenses ENT Reports no additional complaints Card Reports no additional complaints Resp Reports no additional complaints GI Reports no additional complaints and Reports heartburn (Occasional , takes omeprazole as needed) Details: Sees OBGYN at [facility], overdue for her cervical cancer screening, last done in 2019, pt states will schedule appointment Reports no additional complaints and Denies nipple discharge Musc Reports no additional complaints Skin/Breast Denies breast swelling, Denies breast pain, Denies breast mass, Denies nipple discharge and Denies rash Neuro Reports no additional complaints Psych Reports no additional complaints Endo Reports no additional complaints Fernando/Lymph Reports no additional complaints Aller/Immun Reports no additional complaints Physical exam (Primary Care) Vital Signs: Last Vital Signs Temp 98.2 F 01/18/25 08:52 Pulse 87 01/18/25 08:52 Resp 16 01/18/25 08:52 BP 114/70 01/18/25 08:52 Pulse Ox 100 01/18/25 08:52 Oxygen Delivery Method Room Air 01/18/25 08:52 BMI result Body Mass Index 27.8 Tobacco/Smoking Status: Tobacco use Status Tobacco use date assessed 01/18/25 01/18/25 08:57 Patient Tobacco Use Status Former Tobacco user 01/18/25 08:57 e-Cigarette/Vaping Use Never Used 01/18/25 08:57 PHQ-9: PHQ-9 Score PHQ-9: Total score 1 01/18/25 09:29 Depression Screening Interpretation: Negative Thrive Assessment: Date of Thrive Assessment Date Thrive assessed 07/21/24 01/18/25 08:57 Currently or been in a relationship where the following occur: No concerns reported Advance Care Planning discussion: Completed/Scanned Date of discussion: 01/18/25 Who was present: Patient Forms completed: Health Care Proxy Time spent: 16-45 minutes Actual minutes spent: 2 Const Other: Alert oriented x3, no acute distress noted, ambulatory normal gait [facility] General nose exam: Normal external nose present and No nasal discharge present Face and sinus: Yes face symmetric Mouth: Normal oral and palatal mucosa present, lip normal, tongue normal, oropharynx normal and moist mucous membranes Eyes General: appearance normal, both eyes and all related structures Neck Neck: Yes full ROM, Yes no lymphadenopathy and Yes supple Thyroid: Thyroid normal Chest Chest palpation & inspection: normal inspection of the chest Breast/axilla inspection: normal inspection of the breasts Breast/axilla palpation: normal palpation of the breasts Resp Auscultation: clear to auscultation bilaterally Cardio Rate: regular rate Rhythm: regular rhythm Heart sounds: S1 normal heart sound present and S2 normal heart sound present GI Palpation (GI): Soft to palpation, nontender, no guarding and no masses Auscultation: normal bowel sounds Other: Deferred, goes to [facility] General: Yes no CVA tenderness Back/Spine/Pelvis Back: no CVA tenderness and No back tenderness Skin Other: Scattered hyperpigmented macules on back Neuro General: gait normal, moves all extremities and no focal motor deficits Extrem General: Yes full ROM, Yes no joint enlargement, Yes no pedal edema, Yes no calf tenderness and Yes normal gait Psych Appearance: grossly normal and well kempt Mental Status: mental status grossly normal Speech and movement: Normal speech and movement present Affect: normal affect Thought process: Normal thought process present Coding Level of Care Code Est Pt Prev Care 18-39y(05478) Diagnoses Annual visit for general adult medical examination with abnormal findings Z00.01 Advanced directives, counseling/discussion Z71.89 Tongue burning sensation K14.6 Additional Codes CORTNEY-7 Assessment Billing - CORTNEY-7 Assessment Tool: CORTNEY-7 Assessment 70562 ([id number]) PHQ-9 - 31104 - PHQ-9 Billing: Yes ([id number]) Vital Signs *Quality* - Advance Care Planning discussion: Completed/Scanned ([id number]) Vital Signs *Quality* - Time spent: 16-45 minutes ([id number]) Assessment & Plan Assessment & Plan (1) Annual visit for general adult medical examination with abnormal findings: Code(s): Z00.01 - Encounter for general adult medical examination with abnormal findings Plan: Will check appropriate labs, reminded to get her fasting labs done, ordered 01/13/2025. Continue regular dental visit every 6 months and regular eye exams, at least every 2 years. Take adequate calcium in diet and vitamin-D 3 at 2000 IU per cap once a day, in addition to weight-bearing exercises to help maintain good muscle tone and weight control. Instructed to do self-breast exam, and recommended to get yearly mammogram, starting at age 40. Up-to-date with all her vaccines but does not want to get COVID boosters anymore. Referred to dermatology for her routine skin cancer screening (2) Advanced directives, counseling/discussion: Code(s): Z71.89 - Other specified counseling Plan: Initiated the conversation about Advanced Directives. Advanced Directives help patients prepare for current and future decisions about their medical treatment and place of care. Discussed with patient that it is a process where a patients current condition and prognosis are reviewed, their wishes for information regarding their illness are elicited, and likely medical dilemmas are presented and options discussed. Healthcare proxy form completed today. The form can be amended as needed, reviewed yearly and make changes as needed (3) Tongue burning sensation: Code(s): K14.6 - Glossodynia Plan: Empirically prescribed nystatin instructed on proper use. Call if no improvement of symptoms Orders: Referrals Dermatology Referral Z12.83 - Encounter for screening for malignant neoplasm of skin Medications: New nystatin swish and swallow 5 mL PO TID 105 mL 0RF 7 days
== END 2025-01-18 09:22 | disposition home or self-care (01) ==
LOC: HO.HMCC 08:32
PROVIDERS: PCP Internal Medicine; Visit Provider Internal Medicine
DX: Z00.01 Encounter for general adult medical examination with abnormal findings (principal); Z71.89 Other specified counseling; K14.6 Glossodynia; Z00.00 Encounter for general adult medical examination without abnormal findings

== ENCOUNTER → 2025-01-18 08:31 | Outpatient (BNVA) | payer BC, SELFPAY | PROVIDERS: PCP Internal Medicine; Visit Provider Internal Medicine | DX: Z00.01 Encounter for general adult medical examination with abnormal findings (principal); K14.6 Glossodynia; Z71.89 Other specified counseling; Z13.31 Encounter for screening for depression; Z13.39 Encounter for screening examination for other mental health and behavioral disorders | CPT/HCPCS: 96127 ==

== ENCOUNTER 2025-02-12 06:15 | Outpatient (REF) | payer BC, SELFPAY ==
[2025-02-12 11:12] LABS: Cholesterol 196 mg/dL (<200); HDL Cholesterol 68 mg/dL (>40); Triglycerides 73 mg/dL (<150)
[2025-02-15 14:12] LABS: TS Negative Control Passed; TS Panel A 0; TS Panel B 0; TS Positive Control Passed; TSpotTB Negative (Negative)
== END 2025-02-12 06:16 | disposition home or self-care (01) ==
LOC: HO.HMGCLDS 06:15
PROVIDERS: PCP Internal Medicine; Visit Provider Internal Medicine
DX: Z11.1 Encounter for screening for respiratory tuberculosis (principal); Z13.220 Encounter for screening for lipoid disorders; Z13.6 Encounter for screening for cardiovascular disorders; E67.2 Megavitamin-B6 syndrome; Z86.39 Personal history of other endocrine, nutritional and metabolic disease
CPT/HCPCS: 36415; 80061; 82306; 84207; 86481